=== PATIENT | female | born 1985 | race Hispanic/Latino ===

== ENCOUNTER 2018-07-19 06:46 | Emergency (ER) | payer SELFPAY ==
--- NOTE | 2018-07-19 07:17 | ER ---
Nurse's Notes [facility] Name: Tracee Hernandez Age: 33 yrs Sex: Female : 1985 Arrival Date: 07/19/2018 Time: 06:49 Bed 15 Private MD: Diagnosis: Other acute nonsuppurative otitis media, right ear Presentation: 07/19 06:58 Presenting complaint: Patient states: she woke up this morning with right ear pain and bb right sided throat pain with pain with swallowing. Transition of care: patient was not received from another setting of care. Onset of symptoms was July 19, 2018. Risk Assessment: Do you want to hurt yourself or someone else? Patient reports no desire to harm self or others. Initial Sepsis Screen: Does the patient meet any 2 criteria? No. Patient's initial sepsis screen is negative. Does the patient have a suspected source of infection? No. Patient's initial sepsis screen is negative. Care prior to arrival: None. 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 - Social history:: Smoking status: Patient uses tobacco products, smokes one-half pack cigarettes per day, Patient/guardian denies using alcohol, street drugs. - Ebola Screening: : No symptoms or risks identified at this time. - Family history:: not pertinent. - Hospitalizations: : No recent hospitalization is reported. Screenin:02 Abuse screen: Denies threats or abuse. Nutritional screening: No deficits noted. jd3 Tuberculosis screening: No symptoms or risk factors identified. Fall Risk Ambulatory Aid- None/Bed Rest/Nurse Assist (0 pts). Gait- Normal/Bed Rest/Wheelchair (0 pts) Mental Status- Oriented to own ability (0 pts). Total Mae Fall Scale indicates No Risk (0-24 pts). Assessment: 07:00 General: Appears in no apparent distress. uncomfortable, Behavior is calm, cooperative, jd3 appropriate for age. Pain: Complains of pain in right ear and throat. Quality of pain is described as aching. Neuro: Level of Consciousness is awake, alert, obeys commands, Oriented to person, place, time, situation. Cardiovascular: Capillary refill < 3 seconds Patient's skin is warm and dry. Respiratory: Airway is patent Respiratory effort is even, unlabored, Respiratory pattern is regular, symmetrical. GI: No signs and/or symptoms were reported involving the gastrointestinal system. : No signs and/or symptoms were reported regarding the genitourinary system. EENT: Throat is reddened. Derm: Skin is intact, Skin is dry, Skin is normal, Skin temperature is warm. Musculoskeletal: Circulation, motion, and sensation intact. Range of motion: intact in all extremities. 07:23 Reassessment: PT D/C HOME AMBULATORY, DX WITH OTITIS MEDIA. bp Vital Signs: 06:59 BP 120 / 84; Pulse 93; Resp 16 S; Temp 98.1(O); Pulse Ox 98% on R/A; Weight 108.86 kg bb (R); Height 5 ft. 8 in. (172.72 cm) (R); Pain 8/10; 06:59 Body Mass Index 36.49 (108.86 kg, 172.72 cm) bb ED Course: 06:49 Patient arrived in ED. am2 06:53 [facility] kav 06:53 Jayjay Payton MD is Attending Physician. kav 06:59 Triage completed. bb 06:59 Arm band placed on Patient placed in an exam room, on a stretcher, on pulse oximetry. bb 07:00 Salvador Kaur, RN is Primary Nurse. jd3 07:03 Patient has correct armband on for positive identification. Bed in low position. Call jd3 light in reach. Side rails up X 1. 07:24 No provider procedures requiring assistance completed. Patient did not have IV access bp during this emergency room visit. Administered Medications: No medications were administered Outcome: 07:16 Discharge ordered by . kav 07:24 Discharged to home ambulatory. bp 07:24 Condition: stable 07:24 Discharge instructions given to patient, Instructed on discharge instructions, follow up and referral plans. medication usage, Demonstrated understanding of instructions, follow-up care, medications, Prescriptions given X 1. 07:25 Patient left the ED. bp Signatures: Jaylene Decker, DIRECTOR FIELD SERVICES DIRECTOR FIELD SERVICES Babs Castro, RN RN bb Nevaeh Anguiano am2 Salvador Kaur, RN RN jd3 Richardson Cheng RN RN bp
--- NOTE | 2018-07-19 07:17 | EDPHYS ---
Physician Documentation [facility] Name: Tracee Hernandez Age: 33 yrs Sex: Female : 1985 Arrival Date: 07/19/2018 Time: 06:49 Bed 15 Private MD: ED Physician Jayjay Payton HPI: 07/19 07:10 This 33 yrs old Female presents to ER via Ambulatory with complaints of Ear kav Pain, Sore Throat. 07:10 The patient presents with pain, a " 5" out of "10". kav 07:11 The complaints affect the right ear canal. Onset: The symptoms/episode began/occurred kav acutely, this morning. Modifying factors: The symptoms are alleviated by nothing, the symptoms are aggravated by pulling on ears. Associated signs and symptoms: Pertinent positives: sore throat, Pertinent negatives: fever, rhinorrhea, sinus trouble, tinnitus, vertigo, vomiting. Severity of symptoms: At their worst the symptoms were moderate just prior to arrival, in the emergency department the symptoms. The patient has not experienced similar symptoms in the past. The patient has not recently seen a physician. exposure to sick contact: "... with similar symptoms". 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 - Social history:: Smoking status: Patient uses tobacco products, smokes one-half pack cigarettes per day, Patient/guardian denies using alcohol, street drugs. - Ebola Screening: : No symptoms or risks identified at this time. - Family history:: not pertinent. - Hospitalizations: : No recent hospitalization is reported. ROS: 07:13 Constitutional: Negative for fever, chills, and weight loss, Eyes: Negative for injury, kav pain, redness, and discharge, Neck: Negative for injury, pain, and swelling, Cardiovascular: Negative for chest pain, palpitations, and edema, Respiratory: Negative for shortness of breath, cough, wheezing, and pleuritic chest pain, Abdomen/GI: Negative for abdominal pain, nausea, vomiting, diarrhea, and constipation, Back: Negative for injury and pain, : Negative for injury, bleeding, discharge, and swelling, MS/Extremity: Negative for injury and deformity, Skin: Negative for injury, rash, and discoloration, Neuro: Negative for headache, weakness, numbness, tingling, and seizure, Psych: Negative for depression, anxiety, suicide ideation, homicidal ideation, and hallucinations, Allergy/Immunology: Negative for hives, rash, and allergies, Endocrine: Negative for neck swelling, polydipsia, polyuria, polyphagia, and marked weight changes, Hematologic/Lymphatic: Negative for swollen nodes, abnormal bleeding, and unusual bruising. 07:13 ENT: Positive for ear pain, of the right ear canal, sore throat, Negative for tinnitus, nasal discharge, rhinorrhea, sinus congestion. Exam: 07:13 Constitutional: This is a well developed, well nourished patient who is awake, alert, kav and in no acute distress. Head/Face: Normocephalic, atraumatic. Eyes: Pupils equal round and reactive to light, extra-ocular motions intact. Lids and lashes normal. Conjunctiva and sclera are non-icteric and not injected. Cornea within normal limits. Periorbital areas with no swelling, redness, or edema. Neck: Trachea midline, no thyromegaly or masses palpated, and no cervical lymphadenopathy. Supple, full range of motion without nuchal rigidity, or vertebral point tenderness. No Meningismus. Chest/axilla: Normal chest wall appearance and motion. Nontender with no deformity. No lesions are appreciated. Cardiovascular: Regular rate and rhythm with a normal S1 and S2. No gallops, murmurs, or rubs. Normal PMI, no JVD. No pulse deficits. Respiratory: Lungs have equal breath sounds bilaterally, clear to auscultation and percussion. No rales, rhonchi or wheezes noted. No increased work of breathing, no retractions or nasal flaring. Abdomen/GI: Soft, non-tender, with normal bowel sounds. No distension or tympany. No guarding or rebound. No evidence of tenderness throughout. Back: No spinal tenderness. No costovertebral tenderness. Full range of motion. Skin: Warm, dry with normal turgor. Normal color with no rashes, no lesions, and no evidence of cellulitis. MS/ Extremity: Pulses equal, no cyanosis. Neurovascular intact. Full, normal range of motion. Neuro: Awake and alert, GCS 15, oriented to person, place, time, and situation. Cranial nerves II-XII grossly intact. Motor strength 5/5 in all extremities. Sensory grossly intact. Cerebellar exam normal. Normal gait. Psych: Awake, alert, with orientation to person, place and time. Behavior, mood, and affect are within normal limits. 07:13 ENT: External ear(s): are unremarkable, no acute changes, Ear canal(s): erythema, that is moderate, of the right canal, TM's: erythema, that is moderate, on the right, Examination of the other ear shows no obvious abnormality, Nose: no acute changes, Mouth: no acute changes, Posterior pharynx: erythema, that is mild. Vital Signs: 06:59 BP 120 / 84; Pulse 93; Resp 16 S; Temp 98.1(O); Pulse Ox 98% on R/A; Weight 108.86 kg bb (R); Height 5 ft. 8 in. (172.72 cm) (R); Pain 8/10; 06:59 Body Mass Index 36.49 (108.86 kg, 172.72 cm) bb MDM: 07:00 Medical screening is not applicable. [facility] 07:13 Data reviewed: vital signs, nurses notes. [facility] Administered Medications: No medications were administered Disposition: 07/19/18 07:16 Discharged to Home. Impression: Other acute nonsuppurative otitis media, right ear. - Condition is Stable. - Discharge Instructions: Otitis Media, Adult. - Prescriptions for Amoxicillin 500 mg Oral Capsule - take 1 capsule by ORAL route every 8 hours for 10 days; 30 tablet. - Medication Reconciliation Form, Thank You Letter, Antibiotic Education form. - Follow up: Private Physician; When: 5 - 6 days; Reason: If symptoms return, Recheck today's complaints, Continuance of care, Re-evaluation by your physician. - Problem is new. - Symptoms are unchanged. - Notes: Signatures: Jaylene Decker, TAR POT MAN TAR POT MAN Babs Castro, RN RN Richardson Liu, RN RN bp Corrections: (The following items were deleted from the chart) 07:25 07:16 07/19/2018 07:16 Discharged to Home. Impression: Other acute nonsuppurative bp otitis media, right ear. Condition is Stable. Forms are Medication Reconciliation Form, Thank You Letter, Antibiotic Education, Prescription Opioid Use. Follow up: Private Physician; When: 5 - 6 days; Reason: If symptoms return, Recheck today's complaints, Continuance of care, Re-evaluation by your physician. Problem is new. Symptoms are unchanged. kav
== END 2018-07-19 07:25 | disposition home or self-care (01) ==
LOC: ER 06:46
DX: H65.191 Other acute nonsuppurative otitis media, right ear (principal); F17.210 Nicotine dependence, cigarettes, uncomplicated
CPT/HCPCS: 99283

== ENCOUNTER 2019-01-29 20:12 | Emergency (ER) | payer SELFPAY ==
[2019-01-29 21:31] LABS: Absolute Lymphocytes (CBC) 2.6 K/uL (0.7-4.9); Absolute Monocytes 0.6 K/uL (0.1-1.3); Absolute Neutrophil 8.7 K/uL (1.8-8.0); Basophils % 0.4 % (0-1.3); Eosinophils % 1.3 % (0-4.4); Hematocrit 36.2 % (36.0-45.0); Lymphocytes % 21.5 % (15.3-44.8); MPV 8.7 fL (7.6-11.3); Monocytes % 5.2 % (3.3-12.3); RBC Red Blood Cell Count 4.35 M/uL (3.86-4.86)
[2019-01-29] MEDS ORDERED: ACETAMINOPHEN 500 MG TAB ONE (21:32)
[2019-01-29 21:46] LABS: Albumin 3.7 g/dL (3.4-5.0); Bilirubin Total 0.3 mg/dL (0.2-1.0); Potassium 3.5 mmol/L (3.5-5.1); Protein, Total 7.3 g/dL (6.4-8.2)
--- NOTE | 2019-01-29 21:56 | RAD REPORT ---
EXAM DESCRIPTION: US - Transvaginal Study Probe - 01/29/2019 9:36 pm CLINICAL HISTORY: heavy vag bleed Pelvic pain. COMPARISON: No comparisons FINDINGS: The uterus is normal in size, shape and echotexture. The uterus measures 8.6 x 5.8 x 4.3 c m. The endometrial stripe measures 4 mm, normal. Both ovaries are normal in size, shape and echotexture. The right ovary measures 2.8 x 2.1 x 0.8 cm. The left ovary measures 2.6 x 2.1 x 2.0 cm. No ovarian or parovarian lesions. No adnexal masses. Normal Doppler blood flow was demonstrated to both ovaries. No significant pelvic ascites. IMPRESSION: Unremarkable study.
[2019-01-29 22:45] LABS: Urine Blood 3+ (NEG); Urine Glucose NEGATIVE (NEG); Urine Protein 2+ (NEG); Urine pH 5.5 (5.0-7.0)
[2019-01-29 22:47] LABS: Urine RBC TNTC /HPF (NONE SEEN)
--- NOTE | 2019-01-29 22:47 | EDPHYS ---
Physician Documentation [facility] Name: Tracee Hernandez Age: 33 yrs Sex: Female : 1985 Arrival Date: 01/29/2019 Time: 20:15 Bed 18 Private MD: ED Physician Jayjay Payton HPI: 01/29 21:09 This 33 yrs old Female presents to ER via Ambulatory with complaints of wa Vaginal Bleeding. 21:09 The patient presents with vaginal bleeding that is heavy, changing pads every 30 wa minutes. Onset: The symptoms/episode began/occurred 1 week(s) ago. Modifying factors: The symptoms are alleviated by nothing, the symptoms are aggravated by nothing. Associated signs and symptoms: Pertinent positives: cramping, Pertinent negatives: diarrhea, dyspareunia, dysuria, fever, urinary frequency, vomiting. Severity of symptoms: At their worst the symptoms were moderate, in the emergency department the symptoms are unchanged. The patient's method of control includes BCP. The patient has experienced similar episodes in the past. The patient has been recently seen by a physician: FINANCIAL SECRETARY doc. states long standing history of irregular periods. sometimes no periods for several months. placed on OCPs by Technical Staff Engineer to regulate cycles a week ago. Now actually bleeding heavily. denies SOB or PICA. told by her FINANCIAL SECRETARY doc to come and get seen. recent tests, including TSH y FINANCIAL SECRETARY negative. . 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 - Social history:: Smoking status: Patient uses tobacco products, smokes one-half pack cigarettes per day. - Ebola Screening: : Patient denies travel to an Ebola-affected area in the 21 days before illness onset. - Family history:: not pertinent. - Hospitalizations: : No recent hospitalization is reported. ROS: 21:14 Positive for vaginal bleeding, abd/pelvic cramps, Negative for urinary symptoms, wa urinary frequency, hematuria. 21:14 Eyes: Negative for injury, pain, redness, and discharge, ENT: Negative for injury, pain, and discharge, Neck: Negative for injury, pain, and swelling, Cardiovascular: Negative for chest pain, palpitations, and edema, Respiratory: Negative for shortness of breath, cough, wheezing, and pleuritic chest pain, Abdomen/GI: Negative for abdominal pain, nausea, vomiting, diarrhea, and constipation, Back: Negative for injury and pain, MS/Extremity: Negative for injury and deformity, Skin: Negative for injury, rash, and discoloration, Neuro: Negative for headache, weakness, numbness, tingling, and seizure, Psych: Negative for depression, anxiety, suicide ideation, homicidal ideation, and hallucinations. 21:14 : Positive for vaginal bleeding. Exam: 21:15 Head/Face: Normocephalic, atraumatic. Eyes: Pupils equal round and reactive to light, wa extra-ocular motions intact. Lids and lashes normal. Conjunctiva and sclera are non-icteric and not injected. Cornea within normal limits. Periorbital areas with no swelling, redness, or edema. ENT: Nares patent. No nasal discharge, no septal abnormalities noted. Tympanic membranes are normal and external auditory canals are clear. Oropharynx with no redness, swelling, or masses, exudates, or evidence of obstruction, uvula midline. Mucous membranes moist. Neck: Trachea midline, no thyromegaly or masses palpated, and no cervical lymphadenopathy. Supple, full range of motion without nuchal rigidity, or vertebral point tenderness. No Meningismus. Cardiovascular: Regular rate and rhythm with a normal S1 and S2. No gallops, murmurs, or rubs. Normal PMI, no JVD. No pulse deficits. Respiratory: Lungs have equal breath sounds bilaterally, clear to auscultation and percussion. No rales, rhonchi or wheezes noted. No increased work of breathing, no retractions or nasal flaring. Abdomen/GI: Soft, non-tender, with normal bowel sounds. No distension or tympany. No guarding or rebound. No evidence of tenderness throughout. Back: No spinal tenderness. No costovertebral tenderness. Full range of motion. Skin: Warm, dry with normal turgor. Normal color with no rashes, no lesions, and no evidence of cellulitis. MS/ Extremity: Pulses equal, no cyanosis. Neurovascular intact. Full, normal range of motion. Neuro: Awake and alert, GCS 15, oriented to person, place, time, and situation. Cranial nerves II-XII grossly intact. Motor strength 5/5 in all extremities. Sensory grossly intact. Cerebellar exam normal. Normal gait. Psych: Awake, alert, with orientation to person, place and time. Behavior, mood, and affect are within normal limits. 21:15 Constitutional: The patient appears in no acute distress, alert, obese, cushingoid features noted. acanthosis nigracans 21:15 : CVA tenderness, is absent, Pelvic Exam: the exam is deferred. Vital Signs: 20:46 BP 102 / 75; Pulse 92; Resp 18; Temp 97.6; Pulse Ox 96% on R/A; Weight 108.86 kg (R); aj1 Height 5 ft. 8 in. (172.72 cm); Pain 5/10; 22:20 BP 124 / 71; Pulse 85; Resp 18; Pulse Ox 100% on R/A; tl2 20:46 Body Mass Index 36.49 (108.86 kg, 172.72 cm) aj1 MDM: 20:49 Patient medically screened. ky 21:16 Differential diagnosis: cushingoid features. consider PCOS. will r/o anemia. ky 22:06 Data reviewed: vital signs, nurses notes. Test interpretation: by ED physician or ky midlevel provider: wbc 12.2. H/H 11.8/35.2. . 22:07 Test interpretation: by ED physician or midlevel provider: pelvic US: no acute process. wa noted wnl. . 22:43 Test interpretation: by ED physician or midlevel provider: UA noted for blood. . ky Response to treatment: the patient's symptoms have markedly improved after treatment. Special discussion: will d/c with close f/u with her FINANCIAL SECRETARY for further eval. FINANCIAL SECRETARY may need to answer her question of quit or continue OCPs. H/H stable at this time. advised tylenol for cramps prn. 01/29 21:01 Order name: Abo/rh Typing; Complete Time: 22:05 ky 01/29 21:01 Order name: CBC with Diff; Complete Time: 22:05 ky 01/29 21:01 Order name: CMP; Complete Time: 22:05 ky 01/29 21:12 Order name: Test, Serum tl2 01/29 21:13 Order name: Test Serum, Qualitat; Complete Time: 22:05 [facility] 01/29 22:07 Order name: Urine Microscopic Only ky 01/29 21:08 Order name: Transvaginal Study Probe; Complete Time: 22:05 [facility] 01/29 22:40 Order name: Urine Dipstick--Ancillary (enter results) [facility] 01/29 22:40 Order name: Urine --Ancillary (enter results) [facility] 01/29 22:45 Order name: Urine --Ancillary [facility] 01/29 22:45 Order name: Urine Dipstick-Ancillary [facility] 01/29 22:48 Order name: Urine Microscopic Only [facility] 01/29 21:01 Order name: Urine Test (obtain specimen); Complete Time: 22:19 ky 01/29 21:01 Order name: IV Saline Lock; Complete Time: 21:12 ky 01/29 21:01 Order name: Labs collected and sent; Complete Time: 21:12 ky 01/29 21:01 Order name: NPO; Complete Time: 21:12 ky 01/29 21:01 Order name: Urine Dipstick-Ancillary (obtain specimen); Complete Time: 22:20 ky Administered Medications: 21:53 Drug: Tylenol 1000 mg Route: PO; tl2 22:30 Follow up: Response: No adverse reaction; Pain is decreased tl2 Disposition: 01/29/19 22:46 Discharged to Home. Impression: Abnormal Heavy Vaginal Bleeding, Dysfunctional Uterine Bleeding. - Condition is Stable. - Discharge Instructions: Dysfunctional Uterine Bleeding. - Medication Reconciliation Form, Thank You Letter, Antibiotic Education, Prescription Opioid Use form. - Follow up: Private Physician; When: 1 - 2 days; Reason: Recheck today's complaints. - Problem is new. - Symptoms have improved. - Notes: follow up with your FINANCIAL SECRETARY to ask whether you need to continue the pills you are on as your are bleeding. show her your results from today for further analysis. you may take tylenol for cramps as needed. return here for severe bleeding pain and or shortness of breath and or excessive weakness Signatures: Dispatcher [employer] EDJaki Almonte RN RN aj1 Mary Kate Carpenter RN RN tl2 Jayjay Payton MD MD ky Corrections: (The following items were deleted from the chart) 21:08 21:02 Pelvis Complete+US.RAD.BRZ ordered. EDMS EDMS 23:24 22:46 01/29/2019 22:46 Discharged to Home. Impression: Abnormal Heavy Vaginal Bleeding; tl2 Dysfunctional Uterine Bleeding. Condition is Stable. Forms are Medication Reconciliation Form, Thank You Letter, Antibiotic Education, Prescription Opioid Use. Follow up: Private Physician; When: 1 - 2 days; Reason: Recheck today's complaints. Problem is new. Symptoms have improved. wa
--- NOTE | 2019-01-29 22:47 | ER ---
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 My EAR FLAP BINDER said it was normal but I told her it was like a lot so she told me to come in". Transition of care: patient was not received from another setting of care. Onset of symptoms was January 2019. Risk Assessment: Do you want to hurt yourself or someone else? Patient reports no desire to harm self or others. Initial Sepsis Screen: Does the patient meet any 2 criteria? No. Patient's initial sepsis screen is negative. Does the patient have a suspected source of infection? No. Patient's initial sepsis screen is negative. Care prior to arrival: None. 20:44 Method Of Arrival: Ambulatory aj1 20:44 Acuity: KISHA 3 aj1 Triage Assessment: 20:46 General: Appears in no apparent distress. comfortable, Behavior is calm, cooperative, aj1 appropriate for age. Pain: Complains of pain in abdomen Pain currently is 5 out of 10 on a pain scale. Neuro: Level of Consciousness is awake, alert, obeys commands, Oriented to person, place, time, situation. Cardiovascular: Patient's skin is warm and dry. Respiratory: Airway is patent Respiratory effort is even, unlabored, Respiratory pattern is regular, symmetrical. : Reports vaginal bleeding that is bright red, with clots, heavy flow. 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 - Social history:: Smoking status: Patient uses tobacco products, smokes one-half pack cigarettes per day. - Ebola Screening: : Patient denies travel to an Ebola-affected area in the 21 days before illness onset. - Family history:: not pertinent. - Hospitalizations: : No recent hospitalization is reported. Screenin:20 Abuse screen: Denies threats or abuse. Nutritional screening: No deficits noted. tl2 Tuberculosis screening: No symptoms or risk factors identified. Fall Risk None identified. Assessment: 21:20 General: Appears in no apparent distress. uncomfortable, Behavior is calm, cooperative, tl2 appropriate for age. Pain: Complains of pain in abdomen Quality of pain is described as crampy. Neuro: Level of Consciousness is awake, alert, obeys commands, Oriented to person, place, time, situation. Cardiovascular: Denies chest pain. Respiratory: Airway is patent Respiratory effort is even, unlabored, Respiratory pattern is regular, symmetrical. GI: Reports lower abdominal pain, cramping. : Reports cramping, in right in left lower quadrant(s) vaginal bleeding that is heavy flow. Derm: Skin is pink, warm \\T\\ dry. Vital Signs: 20:46 BP 102 / 75; Pulse 92; Resp 18; Temp 97.6; Pulse Ox 96% on R/A; Weight 108.86 kg (R); aj1 Height 5 ft. 8 in. (172.72 cm); Pain 5/10; 22:20 BP 124 / 71; Pulse 85; Resp 18; Pulse Ox 100% on R/A; tl2 20:46 Body Mass Index 36.49 (108.86 kg, 172.72 cm) aj1 ED Course: 20:15 Patient arrived in ED. es 20:45 Triage completed. aj1 20:46 Arm band placed on Patient placed in an exam room. aj1 20:49 Jayjay Payton MD is Attending Physician. wa 21:04 Patient taken to ultrasound. dinora 21:11 Inserted saline lock: 20 gauge in right antecubital area, using aseptic technique. tl2 Blood collected. 21:11 Initial lab(s) drawn, by me, sent to lab. tl2 21:12 Mary Kate Carpenter RN is Primary Nurse. tl2 21:20 Patient has correct armband on for positive identification. Placed in gown. Bed in low tl2 position. Call light in reach. Side rails up X 1. Adult w/ patient. 21:36 Transvaginal Study Probe In Process Unspecified. EDMS 23:22 No provider procedures requiring assistance completed. IV discontinued, intact, tl2 bleeding controlled, No redness/swelling at site. Pressure dressing applied. Administered Medications: 21:53 Drug: Tylenol 1000 mg Route: PO; tl2 22:30 Follow up: Response: No adverse reaction; Pain is decreased tl2 Outcome: 22:46 Discharge ordered by . carl 23:22 Discharged to home ambulatory, with friend. tl2 23:22 Condition: stable 23:22 Discharge instructions given to patient, Instructed on discharge instructions, follow up and referral plans. Demonstrated understanding of instructions, follow-up care. 23:24 Patient left the ED. tl2 Signatures: Dispatcher [employer] Jaki Huynh RN RN aj1 Lakeshia Daniel Jacques jd Knox, Taylor, RN RN tl2 Jayjay Payton MD MD wa
[2019-01-29 22:48] LABS: Urine Bacteria <20 /HPF (<20); Urine Culture Reflex Order NOT NEEDED
== END 2019-01-29 23:24 | disposition home or self-care (01) ==
LOC: ER 20:12
DX: N93.9 Abnormal uterine and vaginal bleeding, unspecified (principal); N93.8 Other specified abnormal uterine and vaginal bleeding; F17.210 Nicotine dependence, cigarettes, uncomplicated
CPT/HCPCS: 36415; 76830; 80053; 81003; 81015; 81025; 84703; 85025; 86900; 86901; 99284

== ENCOUNTER 2019-05-23 22:09 | Emergency (ER) | payer SELFPAY ==
--- NOTE | 2019-05-23 23:09 | ER ---
Nurse's Notes [facility] Name: Tracee Hernandez Age: 33 yrs Sex: Female : 1985 Arrival Date: 05/23/2019 Time: 22:14 Bed 5 Private MD: Diagnosis: Pain in right foot Presentation: 05/23 22:20 Presenting complaint: Patient states: right foot pain started a week ago denies any rr5 trauma. pain score 8/10 when I am walking. 22:20 Transition of care: patient was not received from another setting of care. Onset of rr5 symptoms was May 2019. Risk Assessment: Do you want to hurt yourself or someone else? Patient reports no desire to harm self or others. Initial Sepsis Screen: Does the patient meet any 2 criteria? No. Patient's initial sepsis screen is negative. Does the patient have a suspected source of infection? No. Patient's initial sepsis screen is negative. Care prior to arrival: Medication(s) given: advil. 22:20 Method Of Arrival: Ambulatory rr5 22:20 Acuity: KISHA 3 rr5 RN ANTE PARTUM: 22:28 LMP 05/23/2019 rr5 Historical: - Allergies: 22:29 No Known Allergies; rr5 - Home Meds: 22:29 None [Active]; rr5 - PMHx: 22:29 None; rr5 - PSHx: 22:29 ; rr5 - Immunization history:: Adult Immunizations up to date. - Social history:: Smoking status: Patient uses tobacco products, smokes one-half pack cigarettes per day, Patient/guardian denies using alcohol, street drugs, Smoking status: . - Ebola Screening: : Patient negative for fever greater than or equal to 101.5 degrees Fahrenheit, and additional compatible Ebola Virus Disease symptoms Patient denies exposure to infectious person Patient denies travel to an Ebola-affected area in the 21 days before illness onset. Screenin:29 Abuse screen: Denies threats or abuse. Denies injuries from another. Nutritional rr5 screening: No deficits noted. Tuberculosis screening: No symptoms or risk factors identified. Fall Risk None identified. Total Mae Fall Scale indicates No Risk (0-24 pts). Assessment: 22:30 General: Appears in no apparent distress. comfortable, Behavior is calm, cooperative, rr5 appropriate for age. Pain: Complains of pain in right foot Pain does not radiate. Pain currently is 8 out of 10 on a pain scale. Quality of pain is described as aching, Pain began gradually, Is intermittent. Neuro: Level of Consciousness is awake, alert, obeys commands, Oriented to person, place, time, situation, Appropriate for age. Cardiovascular: Capillary refill < 3 seconds Patient's skin is warm and dry. Respiratory: Airway is patent Respiratory effort is even, unlabored, Respiratory pattern is regular, symmetrical. GI: No signs and/or symptoms were reported involving the gastrointestinal system. : No signs and/or symptoms were reported regarding the genitourinary system. EENT: No signs and/or symptoms were reported regarding the EENT system. Derm: Skin is intact, Skin temperature is warm. Musculoskeletal: Circulation, motion, and sensation intact. Capillary refill < 3 seconds, Reports pain in right foot. 23:12 Reassessment: Patient is alert, oriented x 3, equal unlabored respirations, skin bb warm/dry/pink. pt verbalized understanding of and agrees to plan of care discharge instructions given pt ambulated with steady gait to exit accompanied by friend. Vital Signs: 22:28 BP 130 / 88; Pulse 113; Resp 19; Temp 98.4; Pulse Ox 98% ; Weight 104.33 kg; Height 5 rr5 ft. 8 in. (172.72 cm); Pain 8/10; 22:28 Body Mass Index 34.97 (104.33 kg, 172.72 cm) rr5 ED Course: 22:14 Patient arrived in ED. cf2 22:14 Mayuri Wright FNP-C is [facility]. kb 22:14 Kishore Santoro MD is Attending Physician. kb 22:26 Rod Lott RN is Primary Nurse. rr5 22:28 Triage completed. rr5 22:29 Arm band placed on right wrist. rr5 22:29 No provider procedures requiring assistance completed. rr5 22:42 X-ray completed. Portable x-ray completed in exam room. Patient tolerated procedure mh1 well. 22:54 Foot Right 3 View XRAY In Process Unspecified. EDMS 23:13 Patient has correct armband on for positive identification. bb 23:13 Patient did not have IV access during this emergency room visit. bb Administered Medications: No medications were administered Outcome: 23:07 Discharge ordered by . marie 23:12 Discharged to home ambulatory, with friend. francisco j 23:12 Condition: stable 23:12 Discharge instructions given to patient, Instructed on discharge instructions, follow up and referral plans. medication usage, Demonstrated understanding of instructions, follow-up care, medications, Prescriptions given X 1. 23:13 Patient left the ED. francisco j Signatures: Dispatcher [employer] EDMS Mayuri Wright, EMILY-C VOLTMETER OPERATOR-CkSelene Brito 1 Babs Little, RN RN Rod Spence RN RN rr5 Young Richards 2
--- NOTE | 2019-05-23 23:09 | EDPHYS ---
Physician Documentation [facility] Name: Tracee Hernandez Age: 33 yrs Sex: Female : 1985 Arrival Date: 05/23/2019 Time: 22:14 Bed 5 Private MD: ED Physician Kishore Santoro HPI: 05/23 23:13 This 33 yrs old Female presents to ER via Ambulatory with complaints of Leg kb Pain. 23:13 The patient presents with pain, that is acute. The complaints affect the heel of right kb foot. Context: The problem was sustained at home, resulted from an unknown cause, the patient can fully bear weight, the patient is able to ambulate. Onset: The symptoms/episode began/occurred 1 week(s) ago. Modifying factors: The symptoms are alleviated by nothing. the symptoms are aggravated by weight bearing. Associated signs and symptoms: The patient has no apparent associated signs or symptoms. Treatment prior to arrival includes: no previous treatment. Severity of symptoms: At their worst the symptoms were mild, in the emergency department the symptoms are unchanged. The patient has not experienced similar symptoms in the past. The patient has not recently seen a physician. 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 - Social history:: Smoking status: Patient uses tobacco products, smokes one-half pack cigarettes per day, Patient/guardian denies using alcohol, street drugs, Smoking status: . - Ebola Screening: : Patient negative for fever greater than or equal to 101.5 degrees Fahrenheit, and additional compatible Ebola Virus Disease symptoms Patient denies exposure to infectious person Patient denies travel to an Ebola-affected area in the 21 days before illness onset. ROS: 23:13 Constitutional: Negative for fever, chills, and weight loss, Cardiovascular: Negative kb for chest pain, palpitations, and edema, Respiratory: Negative for shortness of breath, cough, wheezing, and pleuritic chest pain, Abdomen/GI: Negative for abdominal pain, nausea, vomiting, diarrhea, and constipation, Back: Negative for injury and pain, Skin: Negative for injury, rash, and discoloration, Neuro: Negative for headache, weakness, numbness, tingling, and seizure. 23:13 MS/extremity: Positive for pain, of the heel of right foot. Exam: 23:13 Constitutional: This is a well developed, well nourished patient who is awake, alert, kb and in no acute distress. Head/Face: Normocephalic, atraumatic. Chest/axilla: Normal chest wall appearance and motion. Nontender with no deformity. No lesions are appreciated. Cardiovascular: Regular rate and rhythm with a normal S1 and S2. No gallops, murmurs, or rubs. Normal PMI, no JVD. No pulse deficits. Respiratory: Lungs have equal breath sounds bilaterally, clear to auscultation and percussion. No rales, rhonchi or wheezes noted. No increased work of breathing, no retractions or nasal flaring. Abdomen/GI: Soft, non-tender, with normal bowel sounds. No distension or tympany. No guarding or rebound. No evidence of tenderness throughout. Skin: Warm, dry with normal turgor. Normal color with no rashes, no lesions, and no evidence of cellulitis. MS/ Extremity: Pulses equal, no cyanosis. Neurovascular intact. Full, normal range of motion. Neuro: Awake and alert, GCS 15, oriented to person, place, time, and situation. Cranial nerves II-XII grossly intact. Motor strength 5/5 in all extremities. Sensory grossly intact. Cerebellar exam normal. Normal gait. Vital Signs: 22:28 BP 130 / 88; Pulse 113; Resp 19; Temp 98.4; Pulse Ox 98% ; Weight 104.33 kg; Height 5 rr5 ft. 8 in. (172.72 cm); Pain 8/10; 22:28 Body Mass Index 34.97 (104.33 kg, 172.72 cm) rr5 MDM: 22:19 Patient medically screened. kb 23:14 Data reviewed: vital signs, nurses notes. Data interpreted: Pulse oximetry: on room air kb is 98 %. Interpretation: normal. Counseling: I had a detailed discussion with the patient and/or guardian regarding: the historical points, exam findings, and any diagnostic results supporting the discharge/admit diagnosis, radiology results, the need for outpatient follow up, a family practitioner, to return to the emergency department if symptoms worsen or persist or if there are any questions or concerns that arise at home. 05/23 22:22 Order name: Foot Right 3 View XRAY kb Administered Medications: No medications were administered Disposition: 05/24 01:08 Co-signature as Attending Physician, Kishore Santoro MD I agree with the assessment and kdr plan of care. Disposition: 05/23/19 23:07 Discharged to Home. Impression: Pain in right foot. - Condition is Stable. - Discharge Instructions: Foot Pain. - Prescriptions for Diclofenac Sodium 75 mg Oral Tablet, Delayed Release (E.C.) - take 1 tablet by ORAL route 2 times per day As needed; 30 tablet. - Medication Reconciliation Form, Thank You Letter, Antibiotic Education, Prescription Opioid Use form. - Follow up: Emergency Department; When: As needed; Reason: Worsening of condition. Follow up: Private Physician; When: 2 - 3 days; Reason: Recheck today's complaints, Continuance of care, Re-evaluation by your physician. Signatures: Dispatcher [employer] EDMS Mayuri Wright, RN SCHOOL-C RN SCHOOL-CkKishore Monroe MD MD kdr Babs Little RN RN bb Rod Lott, RN RN rr5 Corrections: (The following items were deleted from the chart) 05/23 23:13 23:07 05/23/2019 23:07 Discharged to Home. Impression: Pain in right foot. Condition is bb Stable. Forms are Medication Reconciliation Form, Thank You Letter, Antibiotic Education, Prescription Opioid Use. Follow up: Emergency Department; When: As needed; Reason: Worsening of condition. Follow up: Private Physician; When: 2 - 3 days; Reason: Recheck today's complaints, Continuance of care, Re-evaluation by your physician. kb
[2019-05-23 23:56] VITALS: BP 130/88; TEMP 98.4; O2SAT 98
--- NOTE | 2019-05-24 09:26 | RAD REPORT ---
EXAM DESCRIPTION: RAD - Foot Right 3 View - 05/23/2019 10:43 pm CLINICAL HISTORY: Nontraumatic right foot pain COMPARISON: None. FINDINGS: No fracture, dislocation or periosteal reaction. A very small plantar spur is present. No air or foreign body in the soft tissues. IMPRESSION: Negative right foot examination for acute or suspicious finding.
== END 2019-05-23 23:13 | disposition home or self-care (01) ==
LOC: ER 22:09
DX: M79.671 Pain in right foot (principal); F17.210 Nicotine dependence, cigarettes, uncomplicated
CPT/HCPCS: 99283

== ENCOUNTER 2021-01-05 13:16 | Emergency (ER) | payer SELFPAY ==
[2021-01-05 15:15] LABS: SARS-COV-2 RT PCR POSITIVE (NEGATIVE)
[2021-01-05 15:38] LABS: Urine Specific Gravity/Preg 1.025 (1.005-1.030)
--- NOTE | 2021-01-05 15:46 | EDPHYS ---
Physician Documentation [facility] Name: Tracee Hernandez Age: 35 yrs Sex: Female : 1985 Arrival Date: 01/05/2021 Time: 13:17 Bed 30 Private MD: ED Physician Brad Gutierrez HPI: 01/05 16:29 This 35 yrs old Female presents to ER via Ambulatory with complaints of Flu kb Symptoms. 16:29 The patient or guardian reports cough, flu symptoms, low-grade fever, myalgias. Onset: kb The symptoms/episode began/occurred 2 day(s) ago. Severity of symptoms: At their worst the symptoms were mild, in the emergency department the symptoms are unchanged. Modifying factors: The symptoms are alleviated by the symptoms are aggravated by nothing. Associated signs and symptoms: Pertinent positives: fever, rhinorrhea, Pertinent negatives: chest pain, diarrhea, ear ache, nausea, sore throat, vomiting. The patient has not experienced similar symptoms in the past. The patient has not recently seen a physician. Pt reports she had allergy symptoms (sneezing, cough) that progressed with fever and bodyaches today. Historical: - Allergies: 13:40 No Known Allergies; iw - Home Meds: 13:40 None [Active]; iw - PMHx: 13:40 None; iw - PSHx: 13:40 ; iw - Immunization history:: Adult Immunizations not up to date. - Social history:: Smoking status: Patient reports the use of cigarette tobacco products, smokes one pack cigarettes per day. ROS: 16:24 Cardiovascular: Negative for chest pain, palpitations, and edema, Abdomen/GI: Negative kb for abdominal pain, nausea, vomiting, diarrhea, and constipation, MS/Extremity: Negative for injury and deformity, Skin: Negative for injury, rash, and discoloration, Neuro: Negative for headache, weakness, numbness, tingling, and seizure. 16:24 Constitutional: Positive for body aches, fatigue, fever, malaise. 16:24 ENT: Positive for rhinorrhea. 16:24 Respiratory: Positive for cough. Exam: 16:25 Constitutional: This is a well developed, well nourished patient who is awake, alert, kb and in no acute distress. Head/Face: Normocephalic, atraumatic. Cardiovascular: Regular rate and rhythm with a normal S1 and S2. No gallops, murmurs, or rubs. No pulse deficits. Respiratory: Respirations even and unlabored. No increased work of breathing, no retractions or nasal flaring. Skin: Warm, dry with normal turgor. Normal color. MS/ Extremity: Pulses equal, no cyanosis. Neurovascular intact. Full, normal range of motion. Neuro: Awake and alert, GCS 15, oriented to person, place, time, and situation. Moves all extremities. Normal gait. Vital Signs: 13:39 BP 128 / 88; Pulse 100; Resp 18; Temp 98.0; Pulse Ox 98% on R/A; Weight 111.58 kg; iw Height 5 ft. 9 in. (175.26 cm); 13:39 Body Mass Index 36.33 (111.58 kg, 175.26 cm) iw MDM: 15:28 Patient medically screened. kb 16:24 Data reviewed: vital signs, nurses notes. Data interpreted: Pulse oximetry: on room air kb is 98 %. Interpretation: normal. Counseling: I had a detailed discussion with the patient and/or guardian regarding: the historical points, exam findings, and any diagnostic results supporting the discharge/admit diagnosis, lab results, the need for outpatient follow up, a family practitioner, to return to the emergency department if symptoms worsen or persist or if there are any questions or concerns that arise at home. 01/05 13:43 Order name: Flu 01/05 13:46 Order name: Urine Dipstick-Ancillary (obtain specimen); Complete Time: 15:29 iw 01/05 14:47 Order name: Urine --Ancillary (enter results); Complete Time: 15:39 bd 01/05 15:15 Order name: COVID-19/FLU A+B; Complete Time: 15:16 EDMS Administered Medications: No medications were administered Disposition: 17:23 Co-signature as Attending Physician, Brad Gutierrez MD. rn Disposition: 01/05/21 15:46 Discharged to Home. Impression: Coronavirus infection, unspecified. - Condition is Stable. - Discharge Instructions: Viral Respiratory Infection, Xleo-Eg-Qyer, COVID-19. - Medication Reconciliation Form, Thank You Letter, Antibiotic Education, Prescription Opioid Use form. - Follow up: Emergency Department; When: As needed; Reason: Worsening of condition. Follow up: Private Physician; When: 2 - 3 days; Reason: Recheck today's complaints, Continuance of care, Re-evaluation by your physician. Signatures: Dispatcher [employer] [facility] Mayuri Wright, FOUNDRY MANAGER-C FOUNDRY MANAGER-CkMady Saldana, RN RN iw Brad Gutierrez MD MD rn Smirch, Shelby, RN RN ss Corrections: (The following items were deleted from the chart) 14:12 13:42 CORONAVIRUS+MR.LAB.BRZ ordered. [facility] 14:13 13:44 Influenza Screen (A ordered. [facility] 16:25 15:46 01/05/2021 15:46 Discharged to Home. Impression: Coronavirus infection, ss unspecified. Condition is Stable. Forms are Medication Reconciliation Form, Thank You Letter, Antibiotic Education, Prescription Opioid Use. Follow up: Emergency Department; When: As needed; Reason: Worsening of condition. Follow up: Private Physician; When: 2 - 3 days; Reason: Recheck today's complaints, Continuance of care, Re-evaluation by your physician. kb
--- NOTE | 2021-01-05 15:46 | ER ---
Nurse's Notes [facility] Name: Tracee Hernandez Age: 35 yrs Sex: Female : 1985 Arrival Date: 01/05/2021 Time: 13:17 Bed 30 Private MD: Diagnosis: Coronavirus infection, unspecified Presentation: 01/05 13:39 Chief complaint: Patient states: started off with sneezing, cough, fever, today woke up iw with body aches , not exposed to COVID, no hx of COVID. Coronavirus screen: cough unrelated to allergies, fatigue, fever, muscle pain, Client presents with at least one sign or symptom that may indicate coronavirus-19. Ebola Screen: Patient negative for fever greater than or equal to 101.5 degrees Fahrenheit, and additional compatible Ebola Virus Disease symptoms Patient denies exposure to infectious person. Patient denies travel to an Ebola-affected area in the 21 days before illness onset. No symptoms or risks identified at this time. Initial Sepsis Screen: Does the patient meet any 2 criteria? No. Patient's initial sepsis screen is negative. Does the patient have a suspected source of infection? No. Patient's initial sepsis screen is negative. Risk Assessment: Do you want to hurt yourself or someone else? Patient reports no desire to harm self or others. Onset of symptoms was January 04, 2021. 13:39 Method Of Arrival: Ambulatory iw 13:39 Acuity: KISHA 4 iw Historical: - Allergies: 13:40 No Known Allergies; iw - Home Meds: 13:40 None [Active]; iw - PMHx: 13:40 None; iw - PSHx: 13:40 ; iw - Immunization history:: Adult Immunizations not up to date. - Social history:: Smoking status: Patient reports the use of cigarette tobacco products, smokes one pack cigarettes per day. Screenin:27 Abuse screen: Denies threats or abuse. Denies injuries from another. Nutritional ss screening: No deficits noted. Tuberculosis screening: Never had TB. Fall Risk None identified. Assessment: 15:27 General: Appears in no apparent distress. comfortable, Behavior is calm, cooperative, ss Reports chills for fever for feeling ill for fatigue for. Neuro: Level of Consciousness is awake, alert, obeys commands, Oriented to person, place, time, situation, Public Information Relations Manager are equal bilaterally Speech is normal. Cardiovascular: Capillary refill < 3 seconds is brisk in bilateral fingers Patient's skin is warm and dry. Respiratory: Airway is patent Respiratory effort is even, unlabored, Respiratory pattern is regular, symmetrical. GI: Patient currently denies diarrhea, nausea, vomiting. : No signs and/or symptoms were reported regarding the genitourinary system. EENT: Nares are clear Oral mucosa is moist. Derm: Skin is intact, is healthy with good turgor, Skin is dry, Skin is pink, warm \T\ dry. normal. Vital Signs: 13:39 BP 128 / 88; Pulse 100; Resp 18; Temp 98.0; Pulse Ox 98% on R/A; Weight 111.58 kg; iw Height 5 ft. 9 in. (175.26 cm); 13:39 Body Mass Index 36.33 (111.58 kg, 175.26 cm) iw ED Course: 13:17 Patient arrived in ED. as 13:40 Triage completed. iw 13:41 Arm band placed on. iw 15:14 Mayuri Wright FNP-C is [facility]. kb 15:14 Brad Gutierrez MD is Attending Physician. kb 15:27 Patient has correct armband on for positive identification. Bed in low position. Call ss light in reach. 16:25 No provider procedures requiring assistance completed. Patient did not have IV access ss during this emergency room visit. Administered Medications: No medications were administered Outcome: 15:46 Discharge ordered by MD. kb 16:25 Discharged to home ambulatory, with family. ss 16:25 Condition: good 16:25 Discharge instructions given to patient, family, Instructed on discharge instructions, follow up and referral plans. Demonstrated understanding of instructions, follow-up care. 16:25 Patient left the ED. ss Signatures: Mayuri Wright FNP-C FNP-Jia Núñez Irene RN RN iw Tabitha Dave RN RN ss
[2021-01-05 16:34] VITALS: BP 128/88; TEMP 98; O2SAT 98
[2021-01-06 17:02] LABS: Urine Blood 2+ (Negative); Urine Glucose Negative (Negative); Urine Protein Negative (Negative); Urine Specific Gravity 1.025 (1.005-1.030); Urine pH 5.5 (5.0-7.0)
== END 2021-01-05 16:25 | disposition home or self-care (01) ==
LOC: ER 13:16
DX: U07.1 COVID-19 (principal); F17.210 Nicotine dependence, cigarettes, uncomplicated
CPT/HCPCS: 0240U; 81003; 81025; 99281

== ENCOUNTER 2021-02-20 23:05 | Emergency (ER) | payer SELFPAY ==
--- NOTE | 2021-02-21 00:56 | ER ---
Nurse's Notes [facility] Name: Tracee Hernandez Age: 35 yrs Sex: Female : 1985 Arrival Date: 02/20/2021 Time: 23:07 Bed 2 Private MD: Diagnosis: Contusion of right hand Presentation: 02/20 23:25 Chief complaint: Patient states: I punched a wall now it's hurting. Coronavirus screen: rr5 Client denies travel out of the [place] in the last 14 days. At this time, the client does not indicate any symptoms associated with coronavirus-19. Ebola Screen: Patient negative for fever greater than or equal to 101.5 degrees Fahrenheit, and additional compatible Ebola Virus Disease symptoms Patient denies exposure to infectious person. Patient denies travel to an Ebola-affected area in the 21 days before illness onset. Initial Sepsis Screen: Does the patient meet any 2 criteria? No. Patient's initial sepsis screen is negative. Does the patient have a suspected source of infection? No. Patient's initial sepsis screen is negative. Risk Assessment: Do you want to hurt yourself or someone else? Patient reports no desire to harm self or others. Onset of symptoms was February 20, 2021. 23:25 Method Of Arrival: Ambulatory rr5 23:25 Acuity: KISHA 3 rr5 Triage Assessment: 23:36 General: Appears in no apparent distress. Behavior is calm, cooperative. Pain: ak2 Complains of pain in right hand. Musculoskeletal: Reports pain in right hand. Injury Description: Bruise. 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 - Social history:: Smoking status: Patient reports the use of cigarette tobacco products, smokes one pack cigarettes per day. Patient/guardian denies using alcohol, street drugs. Screenin:36 Abuse screen: Denies threats or abuse. Denies injuries from another. Nutritional ak2 screening: No deficits noted. Tuberculosis screening: No symptoms or risk factors identified. Fall Risk None identified. Assessment: 02/21 01:17 Reassessment: Patient appears in no apparent distress at this time. Patient is alert, rr5 oriented x 3, equal unlabored respirations, skin warm/dry/pink. discharge instruction given and explained without complaints made. Vital Signs: 02/20 23:25 BP 111 / 86; Pulse 104; Resp 16; Temp 97.5; Pulse Ox 100% ; Weight 90.72 kg; Height 5 rr5 ft. 9 in. (175.26 cm); Pain 8/10; 06 01:16 BP 127 / 83; Pulse 83; Resp 16; Pulse Ox 99% ; rr5 01:18 BP 112 / 63; Pulse 74; Resp 16; Pulse Ox 100% on R/A; ak2 02/20 23:25 Body Mass Index 29.53 (90.72 kg, 175.26 cm) rr5 ED Course: 02/20 23:07 Patient arrived in ED. es 23:27 Triage completed. rr5 23:27 Arm band placed on left wrist. rr5 23:34 Ted Dodge is Primary Nurse. ak2 23:35 Gabriel Lyon MD is Attending Physician. tw4 23:36 Patient has correct armband on for positive identification. Bed in low position. Call ak2 light in reach. 23:36 No provider procedures requiring assistance completed. ak2 02/21 00:13 Hand Right 3 View XRAY In Process Unspecified. EDMS 01:17 Patient did not have IV access during this emergency room visit. Rayshawn wrap to right hand.rr5 Administered Medications: 00:49 Drug: TORadol (ketorolac) 60 mg Route: IM; Site: left ventrogluteal; ak2 01:18 Follow up: Response: No adverse reaction rr5 Outcome: 00:55 Discharge ordered by . tw4 01:18 Discharged to home ambulatory. ak2 01:18 Condition: good 01:18 Discharge instructions given to patient. 01:19 Patient left the ED. ak2 Signatures: Dispatcher [employer] Lakeshia Vidal Terrence, MD MD tw4 Rod Lott, RN RN rr5 Ted Dodge ak2
--- NOTE | 2021-02-21 00:56 | EDPHYS ---
Physician Documentation [facility] Name: Tracee Hernandez Age: 35 yrs Sex: Female : 1985 Arrival Date: 02/20/2021 Time: 23:07 Bed 2 Private MD: ED Physician Gabriel Lyon HPI: 02/20 23:56 This 35 yrs old Female presents to ER via Ambulatory with complaints of Hand tw4 Injury. 23:56 The patient or guardian reports injury, pain. The complaints affect the MCP of right tw4 index finger and MCP of right middle finger. Context: The problem was sustained at home, resulted from using own fist to strike, a wall. Onset: The symptoms/episode began/occurred today. Modifying factors: The symptoms are alleviated by nothing, the symptoms are aggravated by nothing. The patient has not experienced similar symptoms in the past. 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 - Social history:: Smoking status: Patient reports the use of cigarette tobacco products, smokes one pack cigarettes per day. Patient/guardian denies using alcohol, street drugs. ROS: 23:56 Constitutional: Negative for fever, chills, and weight loss, Eyes: Negative for injury, tw4 pain, redness, and discharge, Cardiovascular: Negative for chest pain, palpitations, and edema, Respiratory: Negative for shortness of breath, cough, wheezing, and pleuritic chest pain, Abdomen/GI: Negative for abdominal pain, nausea, vomiting, diarrhea, and constipation, Back: Negative for injury and pain. 23:56 MS/extremity: Positive for injury or acute deformity, contusion, decreased range of motion, pain, tenderness, Negative for abrasion, bite, erythema, puncture, rash, tingling, warmth. Exam: 23:56 Constitutional: This is a well developed, well nourished patient who is awake, alert, tw4 and in no acute distress. Head/Face: Normocephalic, atraumatic. Chest/axilla: Normal chest wall appearance and motion. Nontender with no deformity. No lesions are appreciated. Cardiovascular: Regular rate and rhythm with a normal S1 and S2. No gallops, murmurs, or rubs. Normal PMI, no JVD. No pulse deficits. Respiratory: Lungs have equal breath sounds bilaterally, clear to auscultation and percussion. No rales, rhonchi or wheezes noted. No increased work of breathing, no retractions or nasal flaring. Abdomen/GI: Soft, non-tender, with normal bowel sounds. No distension or tympany. No guarding or rebound. No evidence of tenderness throughout. Skin: Warm, dry with normal turgor. Normal color with no rashes, no lesions, and no evidence of cellulitis. Neuro: Awake and alert, GCS 15, oriented to person, place, time, and situation. Cranial nerves II-XII grossly intact. Motor strength 5/5 in all extremities. Sensory grossly intact. Cerebellar exam normal. Normal gait. 23:56 Musculoskeletal/extremity: Extremities: noted in the dorsal aspect of proximal phalanx of right index finger and dorsal aspect of proximal phalanx of right middle finger: Vital Signs: 23:25 BP 111 / 86; Pulse 104; Resp 16; Temp 97.5; Pulse Ox 100% ; Weight 90.72 kg; Height 5 rr5 ft. 9 in. (175.26 cm); Pain 8/10; 02/21 01:16 BP 127 / 83; Pulse 83; Resp 16; Pulse Ox 99% ; rr5 01:18 BP 112 / 63; Pulse 74; Resp 16; Pulse Ox 100% on R/A; ak2 02/20 23:25 Body Mass Index 29.53 (90.72 kg, 175.26 cm) rr5 MDM: 02/20 23:58 Differential diagnosis: dislocation, open fracture. Data reviewed: vital signs, nurses tw4 notes. Data interpreted: Pulse oximetry: Interpretation: normal. Counseling: I had a detailed discussion with the patient and/or guardian regarding: the historical points, exam findings, and any diagnostic results supporting the discharge/admit diagnosis. Special discussion: I discussed with the patient/guardian in detail that at this point there is no indication for admission to the hospital. It is understood, however, that if the symptoms persist or worsen the patient needs to return immediately for re-evaluation. 02/21 00:55 Patient medically screened. tw4 02/20 23:28 Order name: Hand Right 3 View XRAY rr5 02/21 01:18 Order name: Rayshawn Aragon; Complete Time: 01:18 rr5 Administered Medications: 00:49 Drug: TORadol (ketorolac) 60 mg Route: IM; Site: left ventrogluteal; ak2 01:18 Follow up: Response: No adverse reaction rr5 Disposition: 02/21/21 00:55 Discharged to Home. Impression: Contusion of right hand. - Condition is Stable. - Discharge Instructions: Hand Contusion, [id number]. - Prescriptions for Ibuprofen 800 mg Oral Tablet - take 1 tablet by ORAL route every 8 hours As needed take with food; 30 tablet. - Medication Reconciliation Form, Thank You Letter, Antibiotic Education, Prescription Opioid Use form. - Follow up: Private Physician; When: Upon discharge from the Emergency Department; Reason: Recheck today's complaints, Continuance of care, Re-evaluation by your physician. - Problem is new. - Symptoms have improved. Signatures: Dispatcher [employer] EDGabriel Gu MD MD tw4 Rod Lott RN RN rr5 Ted Dodge ak2 Corrections: (The following items were deleted from the chart) 01:19 00:55 02/21/2021 00:55 Discharged to Home. Impression: Contusion of right hand. ak2 Condition is Stable. Forms are Medication Reconciliation Form, Thank You Letter, Antibiotic Education, Prescription Opioid Use. Follow up: Private Physician; When: Upon discharge from the Emergency Department; Reason: Recheck today's complaints, Continuance of care, Re-evaluation by your physician. Problem is new. Symptoms have improved. tw4
[2021-02-21] MEDS ORDERED: KETOROLAC 30 MG/ML INJ ONE (01:05)
[2021-02-21 01:29] VITALS: TEMP 97.5
[2021-02-21 01:32] VITALS: BP 112/63; O2SAT 100
--- NOTE | 2021-02-21 10:02 | RAD REPORT ---
EXAM DESCRIPTION: RAD - Hand Right 3 View - 02/21/2021 12:13 am CLINICAL HISTORY: Right hand pain status post injury FINDINGS: No fracture or dislocation is seen.
== END 2021-02-21 01:19 | disposition home or self-care (01) ==
LOC: ER 23:05
DX: S60.221A Contusion of right hand, initial encounter (principal); W22.8XXA Striking against or struck by other objects, initial encounter
CPT/HCPCS: 96372; 99283